=== PATIENT | female | born 1955 | race Hispanic/Latino ===

== ENCOUNTER 2021-12-20 17:17 | Observation (INO) | payer BC ==
--- OUTSIDE RECORDS SUMMARY | 2021-12-20 17:21 | XMS REPORT | Continuity of Care Document ---
:1955 Author Organization Formerly [facility] t Address [address] [place] [address] Dr. Cotton [address] [place] [id number] Care Team Providers Name Role Phone Unavailable Unavailable Unavailable Problems This patient has no known problems. Allergies, Adverse Reactions, Alerts This patient has no known allergies or adverse reactions. Medications This patient has no known medications. Procedures This patient has no known procedures. Results This patient has no known results.
[2021-12-20 18:08] LABS: Absolute Lymphocytes (CBC) 2.7 K/uL (0.7-4.9); Hematocrit 37.4 % (36.0-45.0); Lymphocytes % 37.9 % (15.3-44.8); MCV 84.8 fL (80-100); MPV 10.4 fL (7.6-11.3); RBC Red Blood Cell Count 4.41 M/uL (3.86-4.86)
[2021-12-20] MEDS ORDERED: NA CHLORIDE 0.9% 1,000 ML ONE (18:10)
[2021-12-20 18:26] LABS: Potassium 4.1 mmol/L (3.5-5.1)
[2021-12-20 18:34] LABS: Troponin High Sensitivity 90.8 pg/mL (<58.9)
--- NOTE | 2021-12-20 19:11 | RAD REPORT ---
EXAM DESCRIPTION: USExtremity Venous Uni Ltd12/20/2021 6:16 pm CLINICAL HISTORY: Left leg swelling COMPARISON: July 2021 FINDINGS: Right common femoral, superficial femoral, popliteal and right posterior tibial veins are compressible and demonstrate augmentation. Doppler demonstrates good flow. Grayscale, color and spectral analysis performed on all vessels IMPRESSION: No evidence of deep venous thrombosis involving the right lower extremity.
--- NOTE | 2021-12-20 19:45 | RAD REPORT ---
EXAM DESCRIPTION: Andrez Single View12/20/2021 7:33 pm CLINICAL HISTORY: Congestion COMPARISON: none FINDINGS: The lungs appear clear of acute infiltrate. The heart is normal size IMPRESSION: No acute abnormalities displayed
[2021-12-20] MEDS ORDERED: ASPIRIN 81 MG CHEWABLE TABLET ONE (19:55)
--- NOTE | 2021-12-20 20:25 | ER ---
Nurse's Notes [facility] Name: Angei Yousif Age: 66 yrs Sex: Female : 1955 Arrival Date: 12/20/2021 Time: 17:23 Bed 23 [facility] MD: Diagnosis: Abnormal levels of other serum enzymes;Muscle weakness (generalized) Presentation: 12/20 17:31 Chief complaint: Patient states: my BS went up to 410, i was taking insulin but not too iw long ago the doctor took me off and put me on metformin. Coronavirus screen: At this time, the client does not indicate any symptoms associated with coronavirus-19. Ebola Screen: Patient negative for fever greater than or equal to 101.5 degrees Fahrenheit, and additional compatible Ebola Virus Disease symptoms Patient denies exposure to infectious person. Patient denies travel to an Ebola-affected area in the 21 days before illness onset. No symptoms or risks identified at this time. Initial Sepsis Screen: Does the patient meet any 2 criteria? No. Patient's initial sepsis screen is negative. Does the patient have a suspected source of infection? No. Patient's initial sepsis screen is negative. Risk Assessment: Do you want to hurt yourself or someone else? Patient reports no desire to harm self or others. Onset of symptoms was December 20, 2021. 17:31 Method Of Arrival: Ambulatory iw 17:31 Acuity: AYAD 3 iw Historical: - Allergies: 17:33 No Known Allergies; iw - Home Meds: 17:33 hydrochlorothiazide 25 mg Oral tab 1 tab once daily [Active]; amlodipine-olmesartan iw 5-20 mg oral tab 1 tab once daily [Active]; simvastatin 40 mg Oral tab 1 tab once daily [Active]; Rybelsus 14 mg oral tab 1 tab once daily [Active]; - PMHx: 17:33 Diabetes mellitus; iw Screenin:15 Abuse screen: Denies threats or abuse. Nutritional screening: No deficits noted. tp1 Tuberculosis screening: No symptoms or risk factors identified. Fall Risk IV access (20 points). Ambulatory Aid- None/Bed Rest/Nurse Assist (0 pts). Gait- Normal/Bed Rest/Wheelchair (0 pts) Mental Status- Oriented to own ability (0 pts). Total Calderon Fall Scale indicates No Risk (0-24 pts). Assessment: 18:17 General: Appears in no apparent distress. comfortable, Behavior is calm, cooperative. tp1 Pain: Denies pain. Neuro: Level of Consciousness is awake, alert, Oriented to person, place, time, situation. Neuro: Reports blurred vision headache. Cardiovascular: Patient's skin is warm and dry. Respiratory: Reports cough when sleeping Airway is patent Respiratory effort is even, unlabored. GI: Abdomen is round non-distended. GI: Reports nausea, vomiting. : No signs and/or symptoms were reported regarding the genitourinary system. EENT: No signs and/or symptoms were reported regarding the EENT system. Derm: Skin is pink, warm \T\ dry. 18:17 Musculoskeletal: Circulation, motion, and sensation intact. tp1 19:01 Reassessment: Patient appears in no apparent distress at this time. No changes from tp1 previously documented assessment. Patient and/or family updated on plan of care and expected duration. Pain level reassessed. Patient is alert, oriented x 3, equal unlabored respirations, skin warm/dry/pink. Vital Signs: 17:31 BP 151 / 79; Pulse 97; Resp 16; Temp 98.4; Pulse Ox 98% on R/A; iw 17:39 BP 149 / 70; Pulse 91; Resp 16; Pulse Ox 100% on R/A; tp1 ED Course: 17:23 Patient arrived in ED. am2 17:32 Triage completed. iw 17:34 Arm band placed on. iw 17:37 Pura Patel FNP-C is [facility]. snw 17:37 Efraín Butcher MD is Attending Physician. snw 17:39 Patient has correct armband on for positive identification. Bed in low position. Call tp1 light in reach. Side rails up X 1. Adult w/ patient. Pulse ox on. NIBP on. 17:39 No provider procedures requiring assistance completed. tp1 17:58 Inserted saline lock: 20 gauge in right forearm, using aseptic technique. tp1 18:00 Inserted saline lock: 20 gauge in right antecubital area, using aseptic technique. tp1 Blood collected. 18:13 Brie Durbin RN is Primary Nurse. tp1 18:18 US Extremity Venous Unilateral Ltd In Process Unspecified. EDMS 19:08 role handed off by Aislinn Kunz, RN mw2 19:35 XRAY Chest (1 view) In Process Unspecified. EDMS 20:21 Stephanie Jarrett PA is Hospitalizing Provider. snw 12/21 05:21 Shara Mccormick MD is Hospitalizing Provider. sb3 Administered Medications: 12/20 18:04 Drug: NS 0.9% 1000 ml Route: IV; Rate: 75 ml/hr; Site: right antecubital; tp1 19:50 Drug: Aspirin Chewable Tablet 324 mg Route: PO; as6 Medication: 17:39 VIS not applicable for this client. tp1 Outcome: 20:25 Decision to Hospitalize by Provider. snw 12/21 05:38 Patient left the ED. bb Signatures: Dispatcher [employer] EDMS Pura Patel, SECTION LABORER-C SECTION LABORER-Csnw Dahiana Trimble RN ERICKA bb nAa Olson RN RN iw Mery Jacobo am2 Clarita Hill mw2 Alfonso Cunningham RN RN as6 Brie Durbin RN RN tp1 Stephanie Jarrett PA PA sb3 Corrections: (The following items were deleted from the chart) 12/20 19:02 17:39 Musculoskeletal: Circulation, motion, and sensation intact. tp1 tp1
--- NOTE | 2021-12-20 20:26 | EDPHYS ---
Physician Documentation [facility] Name: Angie Yousif Age: 66 yrs Sex: Female : 1955 Arrival Date: 12/20/2021 Time: 17:23 Bed 23 Private MD: DESMOND Physician Efraín Butcher HPI: 12/20 17:50 This 66 yrs old Female presents to ER via Ambulatory with complaints of High snw Blood Sugar. 17:50 The patient or guardian reports generalized fatigue, generalized weakness, snw hyperglycemia, that was potentially precipitated by medication change. Onset: The symptoms/episode began/occurred gradually, 1 week(s) ago, and became persistent. Current symptoms: In the emergency department the patient's symptoms are unchanged from the initial presentation, despite home interventions. The patient has experienced similar episodes in the past. The patient has been recently seen by a physician: Dr. Ramires. Historical: - Allergies: 17:33 No Known Allergies; iw - Home Meds: 17:33 hydrochlorothiazide 25 mg Oral tab 1 tab once daily [Active]; amlodipine-olmesartan iw 5-20 mg oral tab 1 tab once daily [Active]; simvastatin 40 mg Oral tab 1 tab once daily [Active]; Rybelsus 14 mg oral tab 1 tab once daily [Active]; - PMHx: 17:33 Diabetes mellitus; iw ROS: 17:47 Eyes: Negative for injury, pain, redness, and discharge, ENT: Negative for injury, snw pain, and discharge, Neck: Negative for injury, pain, and swelling, Cardiovascular: Negative for chest pain, palpitations, and edema, Respiratory: Negative for shortness of breath, cough, wheezing, and pleuritic chest pain. 17:47 Back: Negative for injury and pain, : Negative for injury, bleeding, discharge, and swelling, MS/Extremity: Negative for injury and deformity, Skin: Negative for injury, rash, and discoloration. 17:47 Constitutional: Positive for body aches, fatigue, malaise. 17:47 Abdomen/GI: Positive for diarrhea. 17:47 Neuro: Positive for near syncope, weakness, pt states she has felt bad since she went to her MD and had to change from tresiba to metformin for insurance purposes, also stated HCTZ and pt states this has made her feel poorly as well. Pt to have stress test, echo, and lower ext ultrasound as outpatient in Jan.. Exam: 17:46 Constitutional: This is a well developed, well nourished patient who is awake, alert, snw and in no acute distress. Head/Face: Normocephalic, atraumatic. Eyes: Pupils equal round and reactive to light, extra-ocular motions intact. Lids and lashes normal. Conjunctiva and sclera are non-icteric and not injected. Cornea within normal limits. Periorbital areas with no swelling, redness, or edema. ENT: Nares patent. No nasal discharge, no septal abnormalities noted. Tympanic membranes are normal and external auditory canals are clear. Oropharynx with no redness, swelling, or masses, exudates, or evidence of obstruction, uvula midline. Mucous membranes moist. Neck: Trachea midline, no thyromegaly or masses palpated, and no cervical lymphadenopathy. Supple, full range of motion without nuchal rigidity, or vertebral point tenderness. No Meningismus. Chest/axilla: Normal chest wall appearance and motion. Nontender with no deformity. No lesions are appreciated. Cardiovascular: Regular rate and rhythm with a normal S1 and S2. No gallops, murmurs, or rubs. Normal PMI, no JVD. No pulse deficits. Respiratory: Lungs have equal breath sounds bilaterally, clear to auscultation and percussion. No rales, rhonchi or wheezes noted. No increased work of breathing, no retractions or nasal flaring. Abdomen/GI: Soft, non-tender, with normal bowel sounds. No distension or tympany. No guarding or rebound. No evidence of tenderness throughout. Back: No spinal tenderness. No costovertebral tenderness. Full range of motion. Skin: Warm, dry with normal turgor. Normal color with no rashes, no lesions, and no evidence of cellulitis. Neuro: Awake and alert, GCS 15, oriented to person, place, time, and situation. Cranial nerves II-XII grossly intact. Motor strength 5/5 in all extremities. Sensory grossly intact. Cerebellar exam normal. Normal gait. Psych: Awake, alert, with orientation to person, place and time. Behavior, mood, and affect are within normal limits. 17:46 Musculoskeletal/extremity: Extremities: grossly normal except: swelling, Edema, 1+ to the left midcalf and left ankle is noted, Sensation intact. 18:48 ECG was reviewed by the Attending Physician. snw Vital Signs: 17:31 BP 151 / 79; Pulse 97; Resp 16; Temp 98.4; Pulse Ox 98% on R/A; iw 17:39 BP 149 / 70; Pulse 91; Resp 16; Pulse Ox 100% on R/A; tp1 MDM: 17:40 Patient medically screened. carito 20:19 Data reviewed: vital signs, nurses notes. Data interpreted: Pulse oximetry: on room air snw is 100 %. Interpretation: normal. Response to treatment: the patient's symptoms have mildly improved after treatment. Physician consultation: Stephanie LILLY was called at 19:00, was contacted at 19:00, regarding admission, to the telemetry unit. ED course: Pt requires admission for elevated troponin and diaphoretic event. 12/20 17:46 Order name: Basic Metabolic Panel; Complete Time: 18:35 snw 12/20 17:46 Order name: CBC with Diff; Complete Time: 18:34 snw 12/20 17:46 Order name: Troponin HS; Complete Time: 18:35 snw 12/20 17:59 Order name: Glucose, Ancillary Testing; Complete Time: 18:16 EDMS 12/20 21:38 Order name: Glucose, Ancillary Testing; Complete Time: 21:46 EDMS 12/20 23:27 Order name: Creatine Phosphokinase; Complete Time: 23:28 EDMS 12/20 23:27 Order name: CKMB Creatine Kinase MB; Complete Time: 23:28 EDMS 12/20 23:27 Order name: Troponin High Sensitivity; Complete Time: 23:28 EDMS 12/20 23:52 Order name: Glucose, Ancillary Testing; Complete Time: 23:55 EDMS 12/21 02:59 Order name: CBC with Automated Diff; Complete Time: 03:12 EDMS 12/21 03:31 Order name: Hemoglobin A1c; Complete Time: 05:02 EDMS 12/21 03:33 Order name: Basic Metabolic Panel; Complete Time: 05:02 EDMS 12/21 03:33 Order name: Phosphorus; Complete Time: 05:02 EDMS 12/20 17:46 Order name: XRAY Chest (1 view); Complete Time: 19:50 snw 12/20 17:46 Order name: IV Saline Lock; Complete Time: 18:13 snw 12/20 17:46 Order name: Labs collected and sent; Complete Time: 18:13 snw 12/20 17:46 Order name: O2 Per Protocol; Complete Time: 18:13 snw 12/20 17:46 Order name: O2 Sat Monitoring; Complete Time: 18:13 snw 12/20 17:46 Order name: US Extremity Venous Unilateral Ltd; Complete Time: 20:19 snw 12/20 18:34 Order name: EKG; Complete Time: 18:37 snw 12/21 03:33 Order name: Troponin High Sensitivity; Complete Time: 05:02 EDMS 12/21 03:33 Order name: Lipid Profile; Complete Time: 05:02 EDMS 12/21 03:33 Order name: T4 Free; Complete Time: 05:02 EDMS 12/21 03:33 Order name: Magnesium; Complete Time: 05:02 EDMS 12/21 03:33 Order name: Thyroid Stimulating Hormone; Complete Time: 05:02 EDMS 12/21 03:41 Order name: SARS RAPID bb 12/21 04:34 Order name: SARS-COV-2 Antigen Rapid; Complete Time: 05:02 EDMS 12/20 18:44 Order name: consult Order-Andria Jarrett (Hospitalist); Complete Time: 05:23 snw EC:48 Rate is 83 beats/min. Rhythm is regular. QRS [place] is Normal. [place] interval is normal. QRS snw interval is normal. QT interval is normal. No Q waves. T waves are Flattened. No ST changes noted. Clinical impression: NSR w/ Non-specific ST/T Changes. Administered Medications: 18:04 Drug: NS 0.9% 1000 ml Route: IV; Rate: 75 ml/hr; Site: right antecubital; tp1 19:50 Drug: Aspirin Chewable Tablet 324 mg Route: PO; as6 Disposition Summary: 12/20/21 20:25 Hospitalization Ordered Hospitalization Status: Observation snw Condition: Stable snw Problem: new snw Symptoms: have worsened snw Bed/Room Type: Standard snw Location: Telemetry/MedSurg (observation)(12/21/21 04:42) cg Room Assignment: [facility](12/21/21 04:42) Provider: Shara Mccormick(12/21/21 05:21) sb3 Diagnosis - Abnormal levels of other serum enzymes snw - Muscle weakness (generalized) snw Forms: - Medication Reconciliation Form snw - SBAR form snw Signatures: Dispatcher [employer] EDEfraín Edmonds MD MD cha Waters, Shelly, SUPERINTENDENT NONSELLING-C SUPERINTENDENT NONSELLING-Csnw Ana Olson RN RN iw Lizett Kunz RN RN cg Alfonso Cunningham RN RN as6 Brie Durbin RN RN tp1 Stephanie Jarrett, MAXX PA sb3 Corrections: (The following items were deleted from the chart) 20:30 20:25 Telemetry/MedSurg (observation) snw cg 20:30 20:25 snw cg 12/21 04:42 12/20 20:30 [facility] ER HOLD cg cg 12/21 04:42 12/20 20:30 ERHOLD- cg cg 12/21 05:21 12/20 20:25 Stephanie Jarrett snw sb3
--- NOTE | 2021-12-20 20:47 | P.HP ---
Certification for Inpatient Patient admitted to: Observation With expected LOS: <2 Midnights Patient will require the following post-hospital care: None Practitioner: I am a practitioner with admitting privileges, knowledge of patient current condition, hospital course, and medical plan of care. Services: Services provided to patient in accordance with Admission requirements found in Title 42 Section 412.3 of the Code of Federal Regulations Patient History Date of Service: 12/21/21 Primary Care Provider: Black Reason for admission: Elevated Troponin, Dehydration History of Present Illness: Patient is a 66-year-old female with NIDDM, hypertension, and hyperlipidemia who presented to the ED with complaints of generalized weakness and elevated blood sugar. Patient reports that she has been feeling poorly for 1 to 2 days now. She reports generalized weakness, diaphoresis, blurry vision, nausea, vomiting, diarrhea, and decreased p.o. intake. She checked her blood sugar today after a near syncopal episode and it was over 400. Patient states that she was recently switched from Tresiba to metformin and also put on hydrochlorothiazide for swelling in her right leg. In the ED, her labs are significant for sodium 132, glucose 382, creatinine 1.3, BUN 29, troponin 90.8. EKG without abnormalities. Chest xray negative. COVID pending. She was given 1 L fluid and 324 mg of aspirin. Venous ultrasound negative for DVT. Patient denies any chest pain. She states that she sees Dr. Calzada and is supposed to have echo and stress test in about a month. Upon my assessment, patient reports that she is not feeling any better. Vital signs stable. ED provider wishes to admit patient for observation. Allergies No Known Allergies Allergy (Unverified 12/20/21 20:48) Home medications list reviewed: Yes - Past Medical/Surgical History Diabetic: Yes -: Type 2 Diabetes, Non-Insulin Dependent -: Hypertension -: Hyperlipidemia -: Bladder Surgery Psychosocial/ Personal History: Patient is . - Family History Father -: Heart disease, Stroke - Social History Smoking Status: Former smoker Alcohol use: No CD- Drugs: No Caffeine use: Yes Place of Residence: Home Review of Systems General: Sweats, Weakness Eyes: Vision Change Gastrointestinal: Nausea, Vomiting, Diarrhea Physical Examination - Physical Exam General: Alert, In no apparent distress, Obese HEENT: Atraumatic, PERRLA, EOMI, Sclerae nonicteric Neck: Supple, 2+ carotid pulse no bruit, No LAD, Without JVD or thyroid abnormality Respiratory: Clear to auscultation bilaterally, Normal air movement Cardiovascular: Regular rate/rhythm, Normal S1 S2 Gastrointestinal: Normal bowel sounds, No tenderness Musculoskeletal: No tenderness Integumentary: No rashes Neurological: Normal speech, Normal strength at 5/5 x4 extr, Normal tone, Normal affect - Studies Laboratory Data (last 24 hrs) 12/20/21 17:58: WBC 7.0, Hgb 13.2, Hct 37.4, Plt Count 172 12/20/21 17:58: Sodium 132 L, Potassium 4.1, BUN 29 H, Creatinine 1.31 H, Glucose 382 H Assessment and Plan - Problems (Diagnosis) (1) Elevated troponin Current Visit: Yes Status: Acute (2) Dehydration Current Visit: Yes Status: Acute (3) Hypertension Current Visit: Yes Status: Chronic Qualifiers: Hypertension type: primary hypertension Qualified Code(s): I10 - Essential (primary) hypertension (4) Type 2 diabetes mellitus Current Visit: Yes Status: Chronic Qualifiers: Diabetes mellitus longterm insulin use: without longwall headgate operator use Diabetes mellitus complication status: with hyperglycemia Qualified Code(s): E11.65 - Type 2 diabetes mellitus with hyperglycemia (5) Hyperlipidemia Current Visit: Yes Status: Chronic Qualifiers: Hyperlipidemia type: unspecified Qualified Code(s): E78.5 - Hyperlipidemia, unspecified (6) GUILLERMINA (acute kidney injury) Current Visit: Yes Status: Acute - Plan -Initial troponin elevated at 90. Patient denies chest pain. EKG without abnormalities. Will recheck in 6 hours along with CPK and CKMB. -Echo ordered for morning. Cardiology consulted. -Lipid panel, TSH, and A1C ordered. -Aspirin and atorvastatin daily. -[facility] accu checks with moderate sliding scale insulin and diabetic diet. -Continue IV fluids as patient is dehydrated. -Monitor and replete electrolytes per protocol -Reconcile and continue home medications -Lovenox for VTE ppx -Full code Discharge Plan: Home Plan to discharge in: 24 Hours - Advance Directives Does patient have a Living Will: No Does patient have a Durable POA for Healthcare: No - Code Status/Comfort Care Code Status Assessed: Yes (Full) Critical Care: No Time Spent Managing Pts Care (In Minutes): 50
[2021-12-20] MEDS ORDERED: ACETAMINOPHEN 500 MG TAB PO PRN (20:48)
[2021-12-20] MEDS ORDERED: ONDANSETRON 4 MG/2 ML VIAL IV PRN (20:48)
[2021-12-20] MEDS ORDERED: ATORVASTATIN 20 MG TAB PO SCH (21:00)
[2021-12-20] MEDS: NA CHLORIDE 0.9% 1,000 ML IV SCH (21:00)
[2021-12-20 21:38] VITALS: BMI 48.1
[2021-12-20 23:24] LABS: CKMB Creatine Kinase MB 1.3 ng/mL (1.0-3.6)
[2021-12-20 23:27] LABS: Troponin High Sensitivity 87.6 pg/mL (<58.9)
[2021-12-20] MEDS ORDERED: ATORVASTATIN 20 MG TAB ONE (23:35)
[2021-12-20] MEDS: INSULIN -REGULAR HUMAN 50 UNIT/0.5 ML ML SQ SCH (23:47)
[2021-12-20] MEDS ORDERED: INSULIN -REGULAR HUMAN 50 UNIT/0.5 ML ML ONE (23:54)
[2021-12-21 02:58] LABS: Absolute Lymphocytes (CBC) 3.2 K/uL (0.7-4.9); Hematocrit 33.6 % (36.0-45.0); Lymphocytes % 52.6 % (15.3-44.8); MPV 10.6 fL (7.6-11.3); RBC Red Blood Cell Count 4.01 M/uL (3.86-4.86)
[2021-12-21 03:20] LABS: Magnesium 1.5 mg/dL (1.8-2.4); Phosphorus 3.2 mg/dL (2.5-4.9); Potassium 3.4 mmol/L (3.5-5.1)
[2021-12-21 03:32] LABS: Thyroid Stimulating Hormone 4.93 uIU/mL (0.360-3.740); Troponin High Sensitivity 89.9 pg/mL (<58.9)
[2021-12-21 04:34] LABS: SARS-CoV-2 Antigen Rapid Res Negative (Negative)
[2021-12-21 05:51] VITALS: O2SAT 100
[2021-12-21] MEDS ORDERED: PNEUMOCOCCAL VACCINE 0.5 ML IMVAC ONE (08:00)
[2021-12-21] MEDS: INSULIN -REGULAR HUMAN 50 UNIT/0.5 ML ML SQ SCH ×2 (08:26→12:44)
[2021-12-21] MEDS: NA CHLORIDE 0.9% 1,000 ML IV SCH (08:27)
[2021-12-21] MEDS ORDERED: POTASSIUM CL SA 10 MEQ TAB PO ONE (09:00)
[2021-12-21] MEDS ORDERED: Magnesium Sulfate 2gm IVPB 2 G/50 ML BAG IV ONE (09:00)
[2021-12-21] MEDS ORDERED: ASPIRIN EC 81 MG TAB PO SCH (09:00)
[2021-12-21] MEDS ORDERED: ENOXAPARIN 40 MG/0.4 ML SQ SCH (09:00)
--- NOTE | 2021-12-21 11:31 | CON ---
Date of Consultation: 12/21/2021 Reason For Consultation: Elevated troponin. History Of Present Illness: Ms. Yousif is 66-year-old Latin-Chinese woman. She sees a diabetic beth cool as an outpatient. She sees Dr. Calzada. She has an echocardiogram and a Lexiscan pending in the next month or so. Comes in with elevated troponin, hyperglycemia, mild pedal edema. She has no t had any chest pain. No nausea or vomiting or diaphoresis. Denied any PND, orthopnea, palpitation, or syncope. So far, venous Doppler was negative. Chest x-ray is negative. Troponin is 90. Creati nine was 1.31, is now 0.86. Her glucose initially was almost 400. Past Medical History: Includes diabetes and hypertension. Allergies: NONE. Review of Systems: Negative. Social History: Negative. Family History: Positive for heart disease and diabetes. Medications: Include a combination of Norvasc and olmesartan, also hydrochlorothiazide, Zocor ____. The patient states that she is intolerant to insulin and metformin. Physical Examination: Vital Signs: Blood pressure is 149/70. Vital signs stable, sinus rhythm. HEENT: Negative. Neck: Supple with no bruit. Chest: Clear. Cardiac: Revealed a regular rhythm and rate with S4 gallops. No murmurs, rubs. Abdomen: Benign. Extremities: Revealed trace edema bilaterally. Diagnostic Data: As stated earlier. Impression And Plan: 1.Diabetes, poorly controlled. I will leave that up to Dr. Mccormick and her primary diabetes medicine t o control. 2.Pedal edema with negative venous Doppler. Echocardiogram is pending for today. 3.Hypertension, well controlled. 4.Elevated troponin secondary to demand ischemia from poor sugar control and renal insufficiency. S he is not having chest pain. This is not an acute coronary syndrome. Her EKG is nonspecific. We wi ll see what the echocardiogram shows. She has an outpatient stress test in the office and we will st ick with that plan. Ms. Yousif feels like she is not sensitive to hydrochlorothiazide and we may h ave to switch with low-dose Lasix. I will discuss the case further with Dr. Mccormick. SUSANA/SINAL Voice ID: [id number] Report ID: [id number]
--- NOTE | 2021-12-21 13:45 | EKG ---
Test Date: 2021-12-20 Test Time: 18:47:32 Activities Assistant: FAVIAN MEASUREMENT RESULTS: Intervals: Rate: 83 TX: 196 QRSD: 66 QT: 382 QTc: 448 [place]: P: 58 TX: 196 QRS: 11 T: 65 INTERPRETIVE STATEMENTS: Normal sinus rhythm Normal ECG Compared to ECG 08/24/2002 08:21:00 No significant changes Electronically Signed On 12-21-21 13:43:27 CDT by Aayush Calzada
--- NOTE | 2021-12-21 14:27 | ECHO ---
HEIGHT: 4 ft 7 in WEIGHT: 207 lb 0 oz DATE OF STUDY: 12/21/[address]: Stephanie Jarrett 2-DIMENSIONAL: YES M.MODE: YES DOPPLER: YES COLOR FLOW: YES TDS: YES PORTABLE: YES DEFINITY: NO BUBBLE STUDY: NO DIAGNOSIS: ELEVATED TROPONIN CARDIAC HISTORY: CATHERIZATION: NO SURGERY: NO PROSTHETIC VALVE: NO PACEMAKER: NO MEASUREMENTS (cm) DIASTOLIC (NORMALS) SYSTOLIC (NORMALS) IVSd (0.6-1.2) LA Diam (1.9-4.0) LVEF % LVIDd (3.5-5.7) LVIDs (2.0-3.5) %FS % LVPWd (0.6-1.2) Ao Diam (2.0-3.7) 2 DIMENSIONAL ASSESSMENT: RIGHT ATRIUM: LEFT ATRIUM: RIGHT VENTRICLE: LEFT VENTRICLE: TRICUSPID VALVE: MITRAL VALVE: PULMONIC VALVE: AORTIC VALVE: PERICARDIAL EFFUSION: AORTIC ROOT: LEFT VENTRICULAR WALL MOTION: DOPPLER/COLOR FLOW: COMMENTS: VERY LIMITED STUDY AND POOR WINDOWS. UNABLE TO EVALUATE HEART ON THIS STUDY. TECHNOLOGIST: Pankaj VEGA
[2021-12-21 15:34] LABS: Potassium 4.1 mmol/L (3.5-5.1)
[2021-12-21 16:12] VITALS: BP 125/67; TEMP 97.9
== END 2021-12-21 16:58 | disposition home or self-care (01) ==
LOC: ER 17:17 → ERHOLD 20:21 → 2ND 12-21 04:48
PROVIDERS: ADMIT Hospitalist; ATTEND Hospitalist
DX: E11.65 Type 2 diabetes mellitus with hyperglycemia (principal); I24.8 Other forms of acute ischemic heart disease; R60.0 Localized edema; N28.9 Disorder of kidney and ureter, unspecified; I10 Essential (primary) hypertension; M62.81 Muscle weakness (generalized); Z20.822 Contact with and (suspected) exposure to COVID-19; Z79.899 Other long term (current) drug therapy; Z83.3 Family history of diabetes mellitus; Z82.49 Family history of ischemic heart disease and other diseases of the circulatory system
CPT/HCPCS: 93005; 93306; 85025 ×2; 80048 ×3; 36415 ×2; 83735; 82550; 84100; 84132; 80061; 82947 ×7; 84443; 83036; 84484 ×3; 82553; 84439; 71045; 93971; 87811; J1815 ×3; J1650; J3475; J7030 ×2; 99284

== ENCOUNTER 2024-01-04 07:30 | Emergency (ER) | payer OTHER ==
[2024-01-04] MEDS ORDERED: ACETAMINOPHEN 500 MG TAB ONE (08:17)
--- NOTE | 2024-01-04 08:48 | RAD REPORT ---
EXAM DESCRIPTION: RAD - Hip Left 2 View - 01/04/2024 8:36 am CLINICAL HISTORY: PAIN COMPARISON: Hip Left Wo Cont dated 12/05/2023 FINDINGS/IMPRESSION: No acute fracture. No malalignment. Mild left acetabular degenerative changes. Finding bony detail obscured by underpenetration and body habitus.
--- NOTE | 2024-01-04 08:48 | RAD REPORT ---
EXAM DESCRIPTION: RAD - Knee Left 3 View - 01/04/2024 8:36 am CLINICAL HISTORY: PAIN COMPARISON: No comparisons FINDINGS/IMPRESSION: No acute fracture. No malalignment. Mild medial compartment narrowing. Patellof emoral compartment spurring.
--- NOTE | 2024-01-04 08:49 | RAD REPORT ---
EXAM DESCRIPTION: RAD - Shoulder Right 2 View - 01/04/2024 8:36 am CLINICAL HISTORY: PAIN COMPARISON: No comparisons FINDINGS/IMPRESSION: No acute fracture. No dislocation. Moderate right AC joint degenerative changes . Slightly high-riding humeral head could indicate rotator cuff pathology. Mild right glenohumeral andreea int degenerative changes.
--- NOTE | 2024-01-04 08:57 | EDPHYS ---
Physician Documentation [facility] Name: Angie Yousif Age: 68 yrs Sex: Female : 1955 Arrival Date: 01/04/2024 Time: 07:30 Bed 12 Private MD: ED Physician Gabo Butler HPI: 01/03 09:06 This 68 yrs old Female presents to ER via Ambulatory with complaints of Hip rt Pain, Fall Injury, Knee Pain. 09:06 Patient presents to the ED following mechanical fall on Tuesday. Patient states that she rt tripped, causing her to fall to her left side. Reports pain to the left hip, left knee. States that she feels that she pulled her right arm with her walker, reports right shoulder pain. Did not hit her head, did not lose consciousness. Denies other acute complaints at this time, symptoms are mild in severity, no other aggravating alleviating factors. Patient does report relief with Tylenol.. Historical: - Allergies: 07:50 No Known Allergies; ap3 - PMHx: 07:50 diabetes mellitus; Hypertensive disorder; ap3 - Immunization history:: Client reports receiving the 2nd dose of the Covid vaccine, Flu vaccine is up to date. - Infectious Disease History:: Denies. - Social history:: Smoking status: Patient denies any tobacco usage or history of. - Family history:: not pertinent. ROS: 09:06 Constitutional: Negative for fever, chills, and weight loss, Cardiovascular: Negative rt for chest pain, palpitations, and edema, Respiratory: Negative for shortness of breath, cough, wheezing, and pleuritic chest pain, Abdomen/GI: Negative for abdominal pain, nausea, vomiting, diarrhea, and constipation, Skin: Negative for injury, rash, and discoloration, Neuro: Negative for headache, weakness, numbness, tingling, and seizure, 09:06 MS/extremity: Positive for pain, Negative for deformity, Exam: 09:06 Constitutional: This is a well developed, well nourished patient who is awake, alert, rt and in no acute distress. Head/Face: Normocephalic, atraumatic. Chest/axilla: Normal chest wall appearance and motion. Nontender with no deformity. No lesions are appreciated. Cardiovascular: Regular rate and rhythm with a normal S1 and S2. No gallops, murmurs, or rubs. Normal PMI, no JVD. No pulse deficits. Respiratory: Lungs have equal breath sounds bilaterally, clear to auscultation and percussion. No rales, rhonchi or wheezes noted. No increased work of breathing, no retractions or nasal flaring. Abdomen/GI: Soft, non-tender, with normal bowel sounds. No distension or tympany. No guarding or rebound. No evidence of tenderness throughout. Skin: Warm, dry with normal turgor. Normal color with no rashes, no lesions, and no evidence of cellulitis. 09:06 Musculoskeletal/extremity: Mild tenderness to the left hip, left knee, right shoulder. No deformities. Pulses, motor, sensation intact. Vital Signs: 07:48 BP 171 / 70; Pulse 81; Resp 17; Temp 97.4; Pulse Ox 99% ; Weight 98.43 kg; Height 4 ft. ap3 9 in. ; Pain 4/10; 07:48 Body Mass Index 46.96 (98.43 kg, 144.78 cm) ap3 07:48 Pain Scale: Adult ap3 MDM: 07:57 Patient medically screened. rt 09:06 Differential diagnosis: Soft tissue injury, contusion, fracture. Data reviewed: vital rt signs, nurses notes, radiologic studies. I considered the following discharge prescriptions or medication management in the emergency department Medications were administered in the Emergency Department. See MAR. Independent interpretation of the following test(s) in the Emergency Department X-Ray: My interpretation is No fracture seen on interpretation of x-ray images. Test considered but Not performed: Other Details Denies head injury, loss of consciousness, syncopal symptoms, CT scan of the head, EKG, labs not indicated. Care significantly affected by the following chronic conditions: Hypertension. Counseling: I had a detailed discussion with the patient and/or guardian regarding the historical points, exam findings, and any diagnostic results supporting the discharge/admit diagnosis, radiology results, the need for outpatient follow up. Response to treatment: the patient's symptoms have markedly improved after treatment. 01/03 08:03 Order name: Shoulder Right (2 View) XRAY; Complete Time: 08:50 rt 01/03 08:03 Order name: Hip Left 2 View XRAY; Complete Time: 08:50 rt 01/03 08:03 Order name: Knee Left 3 View XRAY; Complete Time: 08:50 rt Administered Medications: 08:20 Drug: Acetaminophen PO 1000 mg PO once Route: PO; ap3 08:52 Follow up: Response: No adverse reaction; Pain is decreased ap3 Disposition Summary: 01/04/24 08:56 Discharge Ordered Notes: Location: Home rt Problem: new rt Symptoms: have improved rt Condition: Stable rt Diagnosis - Mechanical fall rt - Right shoulder pain rt - Left hip pain rt - Left knee pain rt Followup: rt - With: Gabo Butler MD - When: 2 - 3 days - Reason: Discharge Instructions: - Discharge Summary Sheet rt - Fall Prevention in the Home, Adult rt - Shoulder Pain rt - Acute Knee Pain, Adult rt - Hip Pain rt Forms: - Medication Reconciliation Form rt - Antibiotic Education rt - Prescription Opioid Use rt - Patient Portal Instructions rt - Leadership Thank You Letter rt Signatures: Dispatcher [employer] Mery Camargo RN RN ap3 Gabo Butler MD MD rt Corrections: (The following items were deleted from the chart) 08:04 08:04 Knee Left 3 View+[email or web address] ordered. EDMS EDMS
--- NOTE | 2024-01-04 08:57 | ER ---
Nurse's Notes [facility] Name: Angie Yousif Age: 68 yrs Sex: Female : 1955 Arrival Date: 01/04/2024 Time: 07:30 Bed 12 Private MD: Diagnosis: Mechanical fall;Right shoulder pain;Left hip pain;Left knee pain Presentation: 01/03 07:48 Chief complaint: Patient states: she fell Tuesday, landing on her left knee. patient ap3 ambulated into ED today with walker reporting pain as a 4/10 on the pain scale. patient also reports pain on right shoulder and left hip. Coronavirus screen: At this time, the client does not indicate any symptoms associated with coronavirus-19. Ebola Screen: No symptoms or risks identified at this time. Initial Sepsis Screen: Does the patient meet any 2 criteria? No. Patient's initial sepsis screen is negative. Does the patient have a suspected source of infection? No. Patient's initial sepsis screen is negative. Risk Assessment: Do you want to hurt yourself or someone else? Patient reports no desire to harm self or others. Onset of symptoms was December 30, 2023. 07:48 Method Of Arrival: Ambulatory ap3 07:48 Acuity: AYAD 4 ap3 Triage Assessment: 07:50 General: Appears in no apparent distress. Behavior is calm, cooperative, appropriate ap3 for age. Pain: Complains of pain in left hip, left knee, right shoulder Pain currently is 4 out of 10 on a pain scale. Neuro: Level of Consciousness is awake, alert, obeys commands, Oriented to person, place, time, situation. Cardiovascular: Patient's skin is warm and dry. Respiratory: Airway is patent Respiratory effort is even, unlabored, Respiratory pattern is regular, symmetrical. Historical: - Allergies: 07:50 No Known Allergies; ap3 - PMHx: 07:50 diabetes mellitus; Hypertensive disorder; ap3 - Immunization history:: Client reports receiving the 2nd dose of the Covid vaccine, Flu vaccine is up to date. - Infectious Disease History:: Denies. - Social history:: Smoking status: Patient denies any tobacco usage or history of. - Family history:: not pertinent. Screenin:51 [facility] ED Fall Risk Assessment (Adult) History of falling in the last 3 months, ap3 including since admission Yes- single mechanical fall (1 pt) Confusion or Disorientation No (0 pts) Intoxicated or Sedated No (0 pts) Impaired Gait No (0 pts) Mobility Assist Device Used Yes (1 pt) Altered Elimination No (0 pt) Score/Fall Risk Level 0 - 2 = Low Risk Oriented to surroundings, Maintained a safe environment, Educated pt \T\ family on fall prevention, incl call for assistance when getting out of bed, Assessed \T\ reinforced patient's understanding of fall precautions, Provided non-skid footwear, Used ambulatory aids as needed (educated on \T\ assisted with), Used gait belt as appropriate. Abuse screen: Denies threats or abuse. Nutritional screening: No deficits noted. Tuberculosis screening: No symptoms or risk factors identified. Vital Signs: 07:48 BP 171 / 70; Pulse 81; Resp 17; Temp 97.4; Pulse Ox 99% ; Weight 98.43 kg; Height 4 ft. ap3 9 in. ; Pain 4/10; 07:48 Body Mass Index 46.96 (98.43 kg, 144.78 cm) ap3 07:48 Pain Scale: Adult ap3 ED Course: 07:35 Patient arrived in ED. mg5 07:50 Triage completed. ap3 07:50 Gabo Butler MD is Attending Physician. rt 07:52 Arm band placed on right wrist. ap3 08:38 Shoulder Right (2 View) XRAY In Process Unspecified. EDMS 08:38 Hip Left 2 View XRAY In Process Unspecified. EDMS 08:38 Knee Left 3 View XRAY In Process Unspecified. EDMS 08:51 Mery Jacinto, RN is Primary Nurse. ap3 08:51 Patient has correct armband on for positive identification. Bed in low position. Call ap3 light in reach. Provided Education on: fall risk. Pulse ox on. NIBP on. Door closed. Noise minimized. 08:51 No provider procedures requiring assistance completed. ap3 08:54 Gabo Butler MD is Referral Physician. rt 09:03 Patient did not have IV access during this emergency room visit. ap3 Administered Medications: 08:20 Drug: Acetaminophen PO 1000 mg PO once Route: PO; ap3 08:52 Follow up: Response: No adverse reaction; Pain is decreased ap3 Medication: 09:04 VIS not applicable for this client. ap3 Outcome: 08:56 Discharge ordered by . rt 09:03 Discharged to home ambulatory, ap3 09:03 Condition: good 09:03 Discharge instructions given to patient, Instructed on discharge instructions, follow up and referral plans. Demonstrated understanding of instructions, follow-up care, 09:04 Patient left the ED. ap3 Signatures: Dispatcher [employer] Mery Camargo RN RN ap3 Gabo Butler MD MD rt Ellie Tate mg5
[2024-01-04 09:09] VITALS: BP 171/70; TEMP 97.4; O2SAT 99
== END 2024-01-04 09:04 | disposition home or self-care (01) ==
LOC: ER 07:30
DX: M25.511 Pain in right shoulder (principal); M25.552 Pain in left hip; M25.562 Pain in left knee; W18.30XA Fall on same level, unspecified, initial encounter; E11.9 Type 2 diabetes mellitus without complications; I10 Essential (primary) hypertension